=== PATIENT | female | born 1955 | race Caucasian/White ===

== ENCOUNTER 2021-03-03 16:41 | Emergency (ER) | payer BC ==
--- NOTE | 2021-03-03 17:12 | ED Physician Documentation ---
History of Present Illness - Stated complaint Stated Complaint: FEMALE - Chief complaint Chief Complaint: UTI - Additonal information Additional information: 65-year-old female presents the emergency department for evaluation of acute onset dysuria, urgency and frequency that began yesterday evening. She does have a history of recurrent urinary tract infections but has not been treated for 1 since July 2019. She was recently sexually active and wonders if this may be a contributing factor. She denies fevers, flank pain vomiting. Review of Systems Constitutional: denies: Fever, Chills Eyes: reports: Reviewed and negative Ears: reports: Reviewed and negative Nose: reports: Reviewed and negative Throat: reports: Reviewed and negative Cardiac: reports: Reviewed and negative Respiratory: reports: Reviewed and negative GI: reports: Reviewed and negative : reports: Dysuria, Frequency. denies: Hematuria Skin: reports: Reviewed and negative Musculoskeletal: reports: Reviewed and negative PD PAST MEDICAL HISTORY - Past Medical History Past Medical History: No - Past Surgical History Past Surgical History: No - Present Medications Home Medications: Ambulatory Orders Medication Instructions Recorded Confirmed cephALEXin [Keflex] 500 mg PO BID #14 03/03/21 - Allergies Allergies/Adverse Reactions: Allergies Allergy/AdvReac Type Severity Reaction Status Date / Time No Known Drug Allergies Allergy Verified 03/03/21 16:45 - Social History Does the pt smoke?: No Smoking Status: Never smoker Does the pt drink ETOH?: Yes Does the pt have substance abuse?: No - Immunizations Immunizations are current?: Yes - POLST Patient has POLST: No PD ED PE NORMAL - General General: Alert and oriented X 3, No acute distress - Cardiac Cardiac: RRR - Respiratory Respiratory: No respiratory distress - Abdomen Abdomen: Normal bowel sounds, Soft. No: Non tender (Mild suprapubic tenderness without guarding or rebound. No flank pain. No CVA tenderness.) - Back Back: No CVA TTP, No spinal TTP Results - Vitals Vitals: Vital Signs - 24 hr 03/03/21 16:45 Temperature 36.5 C Heart Rate 69 Respiratory 16 Rate Blood Pressure 149/71 H O2 Saturation 100 Oxygen O2 Source Room air - Labs Labs: Laboratory Tests 03/03/21 16:50 Urine Color LT RED Urine Clarity CLEAR Urine pH 6.0 Ur Specific [place] <=1.005 Urine Protein NEGATIVE Urine Glucose (UA) NEGATIVE Urine Ketones NEGATIVE Urine Occult Blood LARGE H Urine Nitrite NEGATIVE Urine Bilirubin NEGATIVE Urine Urobilinogen 0.2 (NORMAL) Ur Leukocyte Esterase MODERATE H Urine RBC 6-10 H Urine WBC >25 H Ur Squamous Epith Cells FEW Squamous Urine Bacteria Few Ur Microscopic Review INDICATED Urine Culture Comments INDICATED PD MEDICAL DECISION MAKING - ED course Complexity details: reviewed results, re-evaluated patient, d/w patient ED course: 65-year-old female presents emergency department with acute dysuria urgency and frequency that began last night. UA is consistent with infection. This recent infection may have followed sexual intercourse. Patient does not have fevers flank pain or CVA tenderness. No vomiting. My suspicion for pyelonephritis is lower. Abdominal exam was otherwise benign. Patient will be started on cephalexin. First dose given here in the emergency department. Emergent return precautions discussed. Departure - Departure Disposition: Home, Self Care Clinical Impression: Acute cystitis Qualifiers: Hematuria presence: with hematuria Qualified Code(s): N30.01 - Acute cystitis with hematuria Condition: Stable Record reviewed to determine appropriate education?: Yes Instructions: ED UTI Cystitis Female Follow-Up: Aysha Oneill MD [Primary Care Provider] - Prescriptions: cephALEXin [Keflex] 500 mg PO BID #14 Comments: Olivia you do have a urinary tract infection. Your first dose of antibiotic was given here in the emergency department today. Please fill the prescription tomorrow and begin taking twice daily for the next 7 days. If despite the antibiotics you have increased discomfort, develop any fevers abdominal pain or vomiting please return to the ER for a second evaluation.
[2021-03-03 17:15] LABS: BILIRUBIN,URINE NEGATIVE (NEGATIVE); GLUCOSE, URINE (UA) NEGATIVE (NEGATIVE); KETONES,URINE (UA) NEGATIVE (NEGATIVE); LEUKOCYTE ESTERASE, URINE MODERATE (NEGATIVE); NITRITE,URINE NEGATIVE (NEGATIVE); OCCULT BLOOD,URINE LARGE (NEGATIVE); PROTEIN,URINE NEGATIVE (NEGATIVE); UROBILINOGEN,URINE 0.2 (NORMAL) E.U./dL (NORMAL)
[2021-03-03 17:16] LABS: CLARITY,URINE CLEAR (CLEAR)
[2021-03-03 17:24] LABS: BACTERIA,URINE Few /HPF (None Seen); SQUAMOUS EPITHELIAL CELL,UR FEW Squamous (<= Few); WBC,URINE >25 /HPF (0-5)
[2021-03-03] MEDS ORDERED: cephALEXin 250 MG CAPSULE PO STA (17:30)
[2021-03-03 17:57] VITALS: BP 132/70
== END 2021-03-03 18:00 | disposition home or self-care (01) ==
LOC: ED 16:41
DX: N30.01 Acute cystitis with hematuria (principal)
CPT/HCPCS: 81001; 87086; 87181; 99283; 99284; A9270; 81003

== ENCOUNTER 2024-07-24 15:32 | Outpatient (CLI) | payer MEDICARE ==
--- NOTE | 2024-07-24 17:34 | Ultrasound Report ---
PROCEDURE: Soft Tissue Head or Neck INDICATIONS: THYROID NODULES TECHNIQUE: Real-time scanning was performed of the thyroid gland, with image documentation. COMPARISON: None FINDINGS: Right: Thyroid lobe measures 4.7 x 2.2 x 1.1 cm. Left: Thyroid lobe measures 5.7 x 3.1 x 3.3 cm Isthmus: 0.6 cm thick. Echotexture: Heterogeneous. Nodule number: 1 Location: Right inferior thyroid Size: 1 x 1.3 x 1.1 cm. Composition: Solid. Echogenicity: Isoechoic. Shape: wider than tall (0 points). Margins: Smooth (0 points). Echogenic foci: None (0 points). Total points: 3 ACR TI-RADS category: 3 Nodule number: 2 Location: Left mid thyroid Size: 3.4 x 2.9 x 3.7 cm. Composition: Predominantly solid. Echogenicity: Isoechoic/hyperechoic. Shape: wider than tall (0 points). Margins: Smooth (0 points). Echogenic foci: None (0 points). Total points: 3 ACR TI-RADS category: 3 IMPRESSION: Bilateral thyroid nodules are seen. By published criteria, ultrasound-guided fine needle aspiration of the left mid thyroid nodule is rec ommended. ACR TI-RADS definitions and recommendations: TI-RADS 1 (benign): 0 points. FNA not needed. TI-RADS 2 (not suspicious): 2 points. FNA not needed. TI-RADS 3 (mildly suspicious): 3 points. "FNA if 2.5 cm or larger, follow up if 1.5 cm or larger (at 1, 3, and 5 years). TI-RADS 4 (moderately suspicious): 4-6 points. "FNA if 1.5 cm or larger, follow up if 1 cm or larger (at 1, 2, 3, and 5 years). TI-RADS 5 (highly suspicious): 7 points or more. "FNA if 1 cm or larger, follow up if 0.5 cm or larger (every year for 5 years). Reviewed by: Tavares Montero MD on 07/24/2024 4:33 PM SAMMY Approved by: Tavares Montero MD on 07/24/2024 4:33 PM AKASUNCION Station ID: [id number]
== END 2024-07-24 15:33 | disposition home or self-care (01) ==
LOC: DI 15:32
PROVIDERS: ATTEND Nurse Practitioner Family
DX: E04.2 Nontoxic multinodular goiter (principal)